=== PATIENT | female | born 1965 | race Caucasian/White ===

== ENCOUNTER 2019-08-13 20:53 | Emergency (ER) | payer OTHER ==
[~2019-08-13] VITALS: Ht 165.1 cm; Wt 113.4 kg
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
[2019-08-13 22:28] VITALS: BP_SYST 132
--- NOTE | 2019-08-13 22:37 | NUR ---
EKG shown to Dr. Le. Pt placed to ER waiting room in stable condition.
[2019-08-13 23:42] LABS: BASOPHILS # (AUTO) 0.1 K/uL (0.0-0.2); BASOPHILS % (AUTO) 1.3 % (0.0-2.0); EOSINOPHILS # (AUTO) 0.3 K/uL (0.0-0.4); HEMATOCRIT 39.9 % (36-48); HEMOGLOBIN 12.9 g/dL (12.0-16.0); LYMPHOCYTES # (AUTO) 2.8 K/uL (1.0-5.5); LYMPHOCYTES % (AUTO) 28.1 % (20.5-51.5); MEAN CORPUSCULAR HEMOGLOBIN 26 pg (27-31); MEAN CORPUSCULAR HGB CONC 32 % (32-36); MEAN CORPUSCULAR VOLUME 80 fL (79.0-98.0); MONOCYTES # (AUTO) 0.9 K/uL (0.0-1.0); MONOCYTES % (AUTO) 9.4 % (1.7-9.3); NEUTROPHILS # (AUTO) 5.8 K/uL (1.8-7.7); NEUTROPHILS % (AUTO) 58.2 % (40.0-70.0); PLATELET COUNT (AUTO) 367 K/uL (130-430); RED BLOOD CELL COUNT(AUTO) 4.96 MIL/uL (4.2-6.2)
[2019-08-13 23:55] LABS: CALCIUM 8.5 mg/dL (8.4-11.0); CREATININE 0.8 mg/dL (0.55-1.30); POTASSIUM 3.5 mmol/L (3.5-5.1)
[2019-08-14 00:01] LABS: ALBUMIN 3.1 g/dL (3.4-4.8); TOTAL BILIRUBIN 0.2 mg/dL (0.0-1.0)
--- NOTE | 2019-08-14 00:25 | NUR ---
Placed in hallway bed. Placed on equipment monitor phototypesetting, blood pressure machine and pulse oximeter. To gown for exam. Side rails up.
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
[2019-08-14] MEDS ORDERED: ONDANSETRON 4 MG ODT TAB PO ONE (01:15)
--- NOTE | 2019-08-14 01:48 | NUR ---
Dr. Le at bedside.
[2019-08-14] MEDS ORDERED: ONDANSETRON HCL 4 MG/2 ML VIAL IVP ONE (02:30)
[2019-08-14] MEDS ORDERED: MORPHINE 2 MG/ML INJ. SYRINGE IVP ONE (02:30)
--- NOTE | 2019-08-14 03:15 | NUR ---
Pt to radiology. No signs of acute distress or discomfort noted.
--- NOTE | 2019-08-14 03:23 | NUR ---
Pt back from radiology, no signs of acute distress or discomfort noted.
[2019-08-14] MEDS ORDERED: DIPHENHYDRAMINE INJ 50 MG/ML VIAL IVP ONE (04:00)
--- NOTE | 2019-08-14 04:18 | NUR ---
ER Dr. Le at bedside speaking with patient.
[2019-08-14 04:34] VITALS: BP_SYST 132
--- NOTE | 2019-08-14 04:34 | NUR ---
Patient given written and verbal discharge instructions and verbalizes understanding. ER MD Dr. Le discussed with patient the results and treatment provided. Patient in stable condition. ID arm band removed. IV catheter removed intact and dressing applied, no active bleeding. Rx of [place] given. Patient educated on pain management and to follow up with PMD. Pain Scale 2/10 but able to steadily ambulate out of ER. Opportunity for questions provided and answered. Medication side effect fact sheet provided.
== END 2019-08-14 04:34 | disposition home or self-care (01) ==
LOC: SED 20:53
DX: S09.90XA Unspecified injury of head, initial encounter (principal); R51 Headache; M48.00 Spinal stenosis, site unspecified; V49.49XA Driver injured in collision with other motor vehicles in traffic accident, initial encounter; Y93.89 Activity, other specified; Y92.413 State road as the place of occurrence of the external cause; Y99.8 Other external cause status
CPT/HCPCS: 36415; 70450; 71045; 72125; 72128; 80053; 84484; 85025; 93005; 96374; 96375; 99285; J1200; J2270; J2405; Q0162